=== PATIENT | male | born 1980 | race American Indian/Alaskan Native ===

== ENCOUNTER 2020-07-03 11:26 | Emergency (ER) | payer SELFPAY ==
[2020-07-03 11:43] VITALS: BP 128/83
[2020-07-03] MEDS ORDERED: TETANUS,DIPH,PERTUSS(ACELL) VACCINE 0.5 ML SYRINGE IM ONE (11:47)
[2020-07-03] MEDS ORDERED: IBUPROFEN 400 MG TAB PO ONE (11:47)
[2020-07-03] MEDS ORDERED: ACETAMINOPHEN 325 MG TAB PO ONE (11:47)
--- NOTE | 2020-07-03 11:52 | Emergency Department Report ---
Upper Extremity - HPI Chief Complaint: Extremity Injury, Upper Stated Complaint: RT ARM INJURY Time Seen by Provider: 07/03/20 11:40 Upper Extremity: Right Forearm Occurred When: >5 Days (7 days) Mechanism: Fall Severity: mild Symptoms: Yes Pain with Movement, Yes Deformity, Yes Bruising/Ecchymosis, Yes Laceration or Abrasion, No Limited Range of Movement, No Numbness, No Weakness, No Swelling Other History: The patient was evaluated in the emergency department for symptoms described in the history of present illness. He/she was evaluated in the context of the global COVID-19 pandemic, which necessitated consideration that the patient might be at risk for infection with the virus that causes COVID-19. Institutional protocols and algorithms that pertain to the evaluation of patients at risk for COVID-19 are in a state of rapid change based on information released by regulatory bodies including the CDC and federal and state organizations. These policies and algorithms were followed during the patient's care in the emergency department. Please note that these policies, procedures and recommendations changed on a rapid basis. Patient is a 40-year-old gentleman, who is right-hand dominant, who works in construction, who presents to the ER with a complaint of 7days right midshaft forearm swelling, minimal pain, after mechanical fall while at work. The patient states that at work, 7 days ago, after falling, he did not report the injury to his immediate electronics supervisor, and has not followed up with their Worker's Compensation physician. He denies other injuries and complaints. Denies fever, chills, loss of taste and smell, tingling, numbness, weakness. He has no pain on his hand, or shoulder or elbow. He does not know if he is up-to-date with tetanus vaccination status. He indicates that nothing else is bothering him at this time. ED Review of Systems ROS: Stated complaint: RT ARM INJURY Other details as noted in HPI Constitutional: denies: fever Musculoskeletal: arthralgia, myalgia Skin: rash (Right forearm abrasion) Neurological: denies: numbness, paresthesias ED Past Medical Hx - Past Medical History Previous Medical History?: No - Surgical History Past Surgical History?: No - Social History Smoking Status: Current Some Day Smoker - Medications Home Medications: Home Medications Medication Instructions Recorded Confirmed Last Taken Type Acetaminophen [Non-Aspirin Extra 500 mg PO Q6HR PRN #30 tablet 05/28/21 Unknown Rx Strength] Ibuprofen [Motrin] 600 mg PO Q8H PRN #30 tablet 07/03/20 Unknown Rx Upper Extremity Exam - Exam General: Vital signs noted. No distress. Alert and acting appropriately. There is no facial droop. The tongue is midline. Extraocular movements are intact bilaterally. There is 5 out of 5 strength in bilateral upper and lower extremities. Sensation is intact to light touch bilateral upper and lower extremities. There is no past-pointing. There is no pronator drift. There is normal [id number]. There is a normal gait. 2+ pulses noted in the bilateral upper extremities. There is no long bony tenderness, with the exception of the right middle forearm. Muscular compartments are soft. There is a right posterior/medial forearm abrasion. There is swelling noted in the right mid forearm shaft. Finger intrinsics within normal limits and range of motion intact. Sensation intact to light touch in the bilateral deltoid, median, radial, ulnar distribution. Patient speaking on his cell phone, in no acute distress. Head and Torso: No HEENT Abnormality, No Neck Tenderness, No Chest/Lungs Abnormality, No Abdominal Tenderness, No Back Tenderness Shoulder Exam: Yes Normal Range of Motion in Shoulder, No Shoulder Tenderness, No Clavicle Tenderness, No Shoulder Deformity, No AC Joint Tenderness Arm Exam: No Arm/Humerus Tenderness, No Arm Deformity Elbow: No Elbow Tenderness, No Normal Range of Motion in Elbow, No Elbow Deformity Forearm: Yes Forearm Tenderness, Yes Forearm Deformity, No Pain with Pronation, No Pain with Supination Wrist: Yes Normal ROM in Wrist, No Wrist Tenderness, No Wrist Deformity, No Snuffbox Tenderness, No Pain with Axial Thumb Compression Hand: Yes Normal ROM in Digit(s), No Hand Tenderness, No Hand Deformity, No Digit Tenderness, No Digit(s) Deformity, No Tendon Dysfunction CMS Exam: Yes Normal Distal Pulses, Yes Normal Capillary Refill, Yes Normal Distal Sensation, No Broken Skin ED Course Vital Signs 07/03/20 11:38 Temperature 97.7 F Pulse Rate 80 Respiratory 16 Rate Blood Pressure 128/83 O2 Sat by Pulse 97 Oximetry - Reevaluation(s) Reevaluation #1: 07/03/20 12:25 X-ray of the right upper extremity demonstrates a midshaft ulnar fracture. Splint is ordered. Patient updated on findings. He will need to follow-up with an orthopedist, or Worker's Compensation physician Have discussed this with the patient. He has articulated understanding. Repeat neurovascular exam unchanged. ED Medical Decision Making - Lab Data Vital Signs 07/03/20 11:38 Temperature 97.7 F Pulse Rate 80 Respiratory 16 Rate Blood Pressure 128/83 O2 Sat by Pulse 97 Oximetry - Radiology Data Radiology results: report reviewed, image reviewed interpreted by me: X-ray of the right upper extremity demonstrates a right midshaft ulna fracture. Study Comments [address] [place] [address] XRay Report Signed Patient: PROSPER GREER MR#: [id number] 6 : 1980 Acct:[id number] Age/Sex: 40 / M ADM Date: 07/03/20 Loc: ED Attending Dr: Ordering Physician: SHAMIKA HATHAWAY MD Date of Service: 07/03/20 Procedure(s): XR forearm RT Accession Number(s): [id number] cc: SHAMIKA HATHAWAY MD Fluoro Time In Minutes: RIGHT FOREARM 2 VIEWS INDICATION / CLINICAL INFORMATION: right forearm pain, fall COMPARISON: None available. FINDINGS: BONES / JOINT(S): Comminuted fracture midshaft of the ulna without significant displacement. No radial fracture identified. No significant arthritis. SOFT TISSUES: No significant abnormality. ADDITIONAL FINDINGS: None. Signer Name: Adalid Douglass MD Signed: 07/03/2020 12:26 PM Workstation Name: [id number] Transcribed By: ES Dictated By: Adalid Douglass MD Electronically Authenticated By: Adalid Douglass MD Signed Date/Time: 07/03/20 1226 DD/ 1225 - Medical Decision Making Differential diagnosis, including but not limited to: Fracture, dislocation, sprain, strain Assessment and plan: 40-year-old gentleman, who is right-hand dominant, status post mechanical fall 1 week ago, with minimal right forearm midshaft pain swelling and abrasion. Neurovascularly intact, with soft compartments. Check forearm x-ray, give Tylenol and ibuprofen, tetanus vaccination, reassess. Patient denies other injuries, remainder physical examination is unremarkable Critical care attestation.: If time is entered above; I have spent that time in minutes in the direct care of this critically ill patient, excluding procedure time. ED Disposition Clinical Impression: Fracture of right ulna Qualifiers: Encounter type: initial encounter Ulna location: shaft Fracture type: closed Fracture morphology: other fracture Qualified Code(s): S52.291A - Other fracture of shaft of right ulna, initial encounter for closed fracture Abrasion of right arm Qualifiers: Encounter type: initial encounter Qualified Code(s): S40.811A - Abrasion of right upper arm, initial encounter Disposition: TO HOME OR SELFCARE Is pt being admited?: No Does the pt Need Aspirin: No Condition: Good Instructions: Cast or Splint Care, Adult, [id number], Ulnar Fracture Additional Instructions: X-ray today demonstrated a right midshaft ulnar fracture. Please keep the splint in place. We recommend follow-up with a Worker's Compensation physician, sports medicine physician, or orthopedist within the next 3 to 5 days. The patient should find out who his Worker's Compensation physician is by speaking to his immediate electronics supervisor, or benefits department. The patient may alternatively follow-up with Dr. Almanzar, or [facility], or any local orthopedist that he so desires, within the next 3 to 5 days for repeat checkup and evaluation. The patient should absolutely not use the right upper extremity for any heavy lifting, or strenuous physical activity. 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 Please take the prescribed pain medications as needed and directed. Please return to the emergency room right away with new pain, worsened pain, migration of pain, projectile vomiting, change in mental status, confusion, inability to tolerate liquid feeds, new, worsened or different symptoms not present on the initial emergency room evaluation, or any tingling, numbness or weakness Prescriptions: Ibuprofen [Motrin] 600 mg PO Q8H PRN #30 tablet PRN Reason: Pain Acetaminophen [Non-Aspirin Extra Strength] 500 mg PO Q6HR PRN #30 tablet PRN Reason: Pain , Severe (7-10) Referrals: REJI ALMANZAR MD [Staff Physician] - 3-5 Days [facility] [Provider Group] - 3-5 Days Forms: Work/School Release Form(ED)
--- NOTE | 2020-07-03 12:30 | XRay Report ---
RIGHT FOREARM 2 VIEWS INDICATION / CLINICAL INFORMATION: right forearm pain, fall COMPARISON: None available. FINDINGS: BONES / JOINT(S): Comminuted fracture midshaft of the ulna without significant displacement. No radia l fracture identified. No significant arthritis. SOFT TISSUES: No significant abnormality. ADDITIONAL FINDINGS: None. Signer Name: Adalid Douglass MD Signed: 07/03/2020 12:26 PM Workstation Name: [id number]
== END 2020-07-03 13:07 | disposition home or self-care (01) ==
LOC: ED 11:26
DX: S52.291A Other fracture of shaft of right ulna, initial encounter for closed fracture (principal); S40.811A Abrasion of right upper arm, initial encounter; F17.200 Nicotine dependence, unspecified, uncomplicated; Z79.899 Other long term (current) drug therapy; X58.XXXA Exposure to other specified factors, initial encounter; Y93.89 Activity, other specified; Y92.89 Other specified places as the place of occurrence of the external cause; Y99.8 Other external cause status
CPT/HCPCS: 90471; 90715